=== PATIENT | male | born 1955 | race Caucasian/White ===

== ENCOUNTER → 2020-02-17 13:40 | Outpatient (CLI) | payer MEDICARE, OTHER, SELFPAY ==
--- NOTE | 2020-02-17 | DI.MRI.S_ITS ---
PROCEDURE: MR LUMBAR SPINE WO CON INDICATIONS: Radiculopathy, lumbar region TECHNIQUE: Noncontrast sagittal T1 spin echo and T2 fast echo, sagittal STIR, axial T1 and T2 fast spin echo through the lumbar spine. In cases with scoliosis, additional coronal T2 fast spin echo may be performed. COMPARISON: None. FINDINGS: Image quality: Excellent. Alignment and Curvature: There is 27 degrees dextroscoliotic bony alignment centered at the L2 level of the LS spine.. Bone Marrow: Marrow is of normal overall signal. No acute vertebral body compression fractures. Spinal Cord: Conus medullaris terminates at the L1 level. Visualized cord demonstrates normal signal and size. Paraspinous Soft Tissues: No paravertebral masses. L1-L2: Moderately severe degenerative disc disease, with disc height reduction and a posterior transverse mild disc bulge. Facet osteoarthritis is near severe on the left and moderate in severity on the right. Asymmetric L1 nerve root impingement on the left would be expected.. L2-L3: The degenerative disc disease is moderately severe, facet osteoarthritis is symmetric and moderately severe. There is mild concentric spinal stenosis, and there is moderate bilateral foraminal stenosis to the degree that L2 nerve root impingement would be expected, symmetrically. L3-L4: Moderate degenerative disc disease, posterior transverse disc bulge is moderate. Facet osteoarthritis is greater on the right than the left resulting in asymmetric moderately severe right and moderate left foraminal stenosis with likelihood of asymmetric impingement on the L3 nerve roots. L4-L5: Degenerative disc disease is moderate in severity. There is a small posterior transverse disc bulge. Facet osteoarthritis is greater on the right than the left, moderately severe, with asymmetric right greater than left ligamentum flavum hypertrophy. There is a moderate degree of spinal stenosis and asymmetric right greater than left foraminal stenosis with likelihood of asymmetric L4 nerve root impingement. L5-S1: Moderate degenerative disc disease, small posterior transverse disc bulge. Facet osteoarthritis is greater on the right than the left. Foraminal stenosis appears likely symmetric. IMPRESSION: Multilevel degenerative disc disease and facet osteoarthritis is near severe overall, and further compound it by scoliosis that is 27 degrees convex rightward centered at L2. These factors result in both symmetric and asymmetric spinal and foraminal stenosis and likelihood of multilevel radiculopathy. No disc herniation is found, no prior compression fracture is seen. Less common manifestations of disc degeneration: * dorsal epidural disc herniation. * intradural disc herniation (may have beaklike morphology). * symptomatic thoracic herniation: often, calcified, intradural. * far lateral disc herniation. * discal cyst: may have blood-fluid level. * fibrocartilaginous embolism of disc material to spinal cord. * calcified disc or bony spicule causing spinal CSF leak. Lumbar disc nomenclature v2.0: Recommendations of the combined task forces of the [place] [employer], [place] [employer] of [employer]ine Radiology, and [place] Society of Neuroradiology Annular fissures: seen as high intensity zones on MRI. Concentric, radial, transverse. Degeneration encompasses: desiccation, fibrosis, disc narrowing, diffuse bulge, fissuring, mucinous degeneration of annulus, intradiscal gas, vertebral apophyseal osteophytes, end plate defects, inflammatory changes and sclerosis (Modic types I-III). Disc herniation: localized or focal displacement of disc material less than 25% (90 degrees) of disc periphery on axial images. Diffuse bulging and asymmetric bulging (>25%) are not considered herniation. * Protrusion, extrusion, sequestration. * Disc fragment can migrate (refers only to position, not contiguity). * Intravertebral herniations (aka Schmorl nodes). * Herniations may be contained (if covered by intact outer annulus and/or PLL) vs uncontained. Subligamentous is considered synonymous with contained. A sequestered and/or migrated disc fragment can still be contained. Canal and foraminal stenosis: use 2-D measurements at site of most marked compromise. * Mild: canal compromise of less than 1/3. * Moderate: canal compromise of 1/3 to 2/3. * Severe: canal compromise of greater than 2/3. Location descriptors: * Central, right/left central, right/left subarticular, right/left foraminal, right/left extraforaminal or far lateral. Right/left central should supersede paracentral (a more general term). * In sagittal plane: discal, infrapedicular, suprapedicular, or pedicular. Dictated by: Alex Cao M.D. on 02/17/2020 at 16:41 Approved by: Alex Cao M.D. on 02/17/2020 at 16:50
== END ==
PROVIDERS: Referring Provider Physical Medicine & Rehabilitation Pain Medicine; Visit Provider Physical Medicine & Rehabilitation Pain Medicine
DX: M51.16 Intervertebral disc disorders with radiculopathy, lumbar region (principal); M51.17 Intervertebral disc disorders with radiculopathy, lumbosacral region; M47.26 Other spondylosis with radiculopathy, lumbar region; M47.27 Other spondylosis with radiculopathy, lumbosacral region; M48.061 Spinal stenosis, lumbar region without neurogenic claudication; M48.07 Spinal stenosis, lumbosacral region; M41.9 Scoliosis, unspecified
CPT/HCPCS: 72148

== ENCOUNTER → 2021-01-21 10:59 | Outpatient (CLI) | payer MEDICARE, OTHER, SELFPAY ==
[2021-01-21 13:42] LABS: COVID19 -Nasal RAPID Negative (Negative)
== END ==
PROVIDERS: PCP Physician Assistant; Visit Provider Nurse Practitioner Family
DX: Z20.822 Contact with and (suspected) exposure to COVID-19 (principal); Z01.812 Encounter for preprocedural laboratory examination
CPT/HCPCS: 87635; C9803

== ENCOUNTER 2021-01-22 06:46 | Day surgery (SDC) | payer MEDICARE, OTHER, SELFPAY ==
[2021-01-22] MEDS: PROPARACAINE 0.5% OPHTH SOL 2 DROPS EYE-OP (07:10)
[2021-01-22 07:14] VITALS: BMI 24.7
[2021-01-22] MEDS: CATARACT EYE COMPOUND (10 DROPS/SYRINGE) 3 DROPS EYE-OP (07:17)
[2021-01-22 07:29] VITALS: BP 130/73; PULSE 51; RESP 14; TEMP 36.4; O2SAT 98
--- NOTE | 2021-01-22 08:02 | P.OP_ITS ---
Operative Date/Time/Diagnoses Pre-op diagnosis: Nuclear Cataract Left eye Post-op diagnosis: same Procedure & Clinicians Same procedure as scheduled: Yes Surgeon: Esteban Bradley Anesthesia Type: MAC +/- and Sedation Operative Notes Procedure in detail: Patient brought to the operating suite. Tetracaine drops placed in the left eye. Marking instrument was used to conrad the vertical and horizontal meridians. Patient was prepped and draped in sterile manner. Wire lid speculum was placed in the eye. Marking instrument was used to conrad the 160 degree meridian. Betadine drops were placed on the eye. This was irrigated. Lidocaine jelly was placed on the eye. A paracentesis port was created with a side-port blade. 0.1 mL 1% preservative free lidocaine was injected into the anterior chamber. The anterior chamber was deepened with viscoelastic. 2.6 mm keratome was used to create a temporal clear corneal incision. Cystotome and Utrata forceps were used to create continuous tear capsulorrhexis. Balanced salt solution was used to hydro dissect the nucleus. The phacoemulsification handpiece was inserted and the nucleus was removed using the stop and chop technique. The irrigation aspiration handpiece was inserted and the remaining cortex was removed. Anterior chamber was deepened with viscoelastic. An Allen [id number] intraocular lens with a power of 21.5 was injected into the capsular bag. Irrigation aspiration handpiece was inserted and the remaining viscoelastic was removed. The lens was rotated to the 160 degree meridian. Incision was hydrated with balanced salt solution and found to be leak free with pressure with Weck- Chantel sponges. 0.1 mL Vigamox injected anterior chamber. 0.3 mL Kenalog 10 mg was injected subconjunctivally. Lid speculum was removed. The patient left the operating room in excellent condition. Complications: none Post-operative Condition: stable Disposition: same day surgery
--- NOTE | 2021-01-22 08:02 | PM.PREOP ---
Pre-operative Note Interval Note History & Physical reviewed/Exam performed by Physician: Yes Changes to H&P: No
[2021-01-22] MEDS: MOXIFLOXACIN INJ 4 MG/0.8 ML VIAL 0.5 MG EYE-OP (08:13)
[2021-01-22] MEDS: HYALURONATE SODIUM 30 MG-10 MG/ML SYRINGES 1 BOX INTRAOCULA (08:13)
[2021-01-22] MEDS: PHENYLEPHRINE/LIDOCAINE VIAL (OR) 0.2 ML EYE-OP (08:13)
[2021-01-22] MEDS: TRIAMCINOLONE 50 MG/5 ML VIAL INJ (08:14)
[2021-01-22] MEDS: BALANCED SALT IRRIG SOLN NO.2 500 ML, EPINEPHrine 1 MG IRR (08:14)
[2021-01-22] MEDS: TETRACAINE 0.5% OPHTH DROPS 4 ML 2 DROPS EYE-OP (08:14)
[2021-01-22] MEDS: LIDOCAINE 2% (GLYDO) 6 ML GEL TOP (08:14)
[2021-01-22 08:35] VITALS: BP 105/70; PULSE 47; RESP 16; TEMP 36.4; O2SAT 99
--- NOTE | 2021-01-22 08:54 | SUR.PHASEII ---
Pt ready to go, left in stable condition.
== END 2021-01-22 08:55 | disposition home or self-care (01) ==
PROVIDERS: Referring Provider Ophthalmology; Visit Provider Ophthalmology
PROC: (CPT 66984; principal; 2021-01-22 08:15)
DX: H25.12 Age-related nuclear cataract, left eye (principal)
CPT/HCPCS: 66984; J0171; J2250; J3301; V2787

== ENCOUNTER → 2021-02-04 08:08 | Outpatient (CLI) | payer MEDICARE, OTHER, SELFPAY ==
[2021-02-04 12:00] LABS: COVID19 -Nasal RAPID Negative (Negative)
== END ==
PROVIDERS: Visit Provider Physician Assistant
DX: Z01.812 Encounter for preprocedural laboratory examination (principal); Z20.822 Contact with and (suspected) exposure to COVID-19
CPT/HCPCS: 87635

== ENCOUNTER 2021-02-05 07:50 | Day surgery (SDC) | payer MEDICARE, OTHER, SELFPAY ==
[2021-02-05] MEDS: PROPARACAINE 0.5% OPHTH SOL 2 DROPS EYE-OP (09:05)
[2021-02-05 09:14] VITALS: BP 136/79; PULSE 51; RESP 18; TEMP 36.6; O2SAT 99; BMI 25.0
[2021-02-05] MEDS: CATARACT EYE COMPOUND (10 DROPS/SYRINGE) 3 DROPS EYE-OP (09:22)
--- NOTE | 2021-02-05 09:41 | PM.PREOP ---
Pre-operative Note Interval Note History & Physical reviewed/Exam performed by Physician: Yes Changes to H&P: No
--- NOTE | 2021-02-05 09:41 | PM.OP.1 ---
Operative Date/Time/Diagnoses Pre-op diagnosis: Nuclear cataract right eye Procedure & Clinicians Procedure: Cataract Surgery Same procedure as scheduled: Yes Surgeon: Esteban Bradley Anesthesia Type: MAC +/- and Sedation Operative Notes Procedure in detail: Patient brought to the operating suite. Tetracaine drops placed in the right eye. Marking instrument was used to conrad the vertical and horizontal meridians. Patient was prepped and draped in sterile manner. Wire lid speculum was placed in the eye. Marking instrument was used to conrad the 5 degree meridian. Betadine drops were placed on the eye. This was irrigated. Lidocaine jelly was placed on the eye. A paracentesis port was created with a side-port blade. 0.1 mL 1% preservative free lidocaine was injected into the anterior chamber. The anterior chamber was deepened with viscoelastic. 2.6 mm keratome was used to create a temporal clear corneal incision. Cystotome and Utrata forceps were used to create continuous tear capsulorrhexis. Balanced salt solution was used to hydro dissect the nucleus. The phacoemulsification handpiece was inserted and the nucleus was removed using the stop and chop technique. The irrigation aspiration handpiece was inserted and the remaining cortex was removed. Anterior chamber was deepened with viscoelastic. An Allen [id number] intraocular lens with a power of 20.0 was injected into the capsular bag. Irrigation aspiration handpiece was inserted and the remaining viscoelastic was removed. The lens was rotated to the 5 degree meridian. Incision was hydrated with balanced salt solution and found to be leak free with pressure with Weck-Chantel sponges. 0.1 mL Vigamox injected anterior chamber. 0.3 mL Kenalog 10 mg was injected subconjunctivally. Lid speculum was removed. The patient left the operating room in excellent condition. Complications: none Post-operative Condition: stable Disposition: same day surgery
[2021-02-05] MEDS: HYALURONATE SODIUM 30 MG-10 MG/ML SYRINGES 1 BOX INTRAOCULA (10:03)
[2021-02-05] MEDS: TETRACAINE 0.5% OPHTH DROPS 4 ML 2 DROPS EYE-OP (10:04)
[2021-02-05] MEDS: TRIAMCINOLONE 50 MG/5 ML VIAL INJ (10:04)
[2021-02-05] MEDS: MOXIFLOXACIN INJ 4 MG/0.8 ML VIAL 0.5 MG EYE-OP (10:04)
[2021-02-05] MEDS: BALANCED SALT IRRIG SOLN NO.2 500 ML, EPINEPHrine 1 MG IRR (10:04)
[2021-02-05] MEDS: PHENYLEPHRINE/LIDOCAINE VIAL (OR) 0.2 ML EYE-OP (10:04)
[2021-02-05] MEDS: LIDOCAINE 2% (GLYDO) 6 ML GEL TOP (10:05)
[2021-02-05 10:19] VITALS: BP 117/73; PULSE 47; RESP 16; TEMP 36.4; O2SAT 100
== END 2021-02-05 10:32 | disposition home or self-care (01) ==
PROVIDERS: Referring Provider Ophthalmology; Visit Provider Ophthalmology
PROC: (CPT 66984; principal; 2021-02-05 09:45)
DX: H25.11 Age-related nuclear cataract, right eye (principal)
CPT/HCPCS: 66984; J0171; J2250; J3301; V2787

== ENCOUNTER → 2022-10-20 15:54 | Outpatient (CLI) | payer MEDICARE, OTHER, SELFPAY ==
--- NOTE | 2022-10-20 15:55 | DI.RAD.S_ITS ---
PROCEDURE: XR TIBIA FUBULA RT 2V INDICATIONS: Right leg injury TECHNIQUE: 2 views of the tibia and fibula were acquired. COMPARISON: None. FINDINGS: Bones: No fractures or dislocations. No suspicious bony lesions. Degenerative disc space narrowing and small marginal osteophyte noted at the knee Soft tissues: No suspicious soft tissue calcifications or masses. IMPRESSION: Arthritic changes of the knee. No fracture Approved by: Home Salazar M.D. on 10/20/2022 at 19:29
== END ==
PROVIDERS: PCP Family Medicine; Referring Provider Nurse Practitioner Family; Visit Provider Nurse Practitioner Family
DX: M79.604 Pain in right leg (principal)
CPT/HCPCS: 73590

== ENCOUNTER 2022-10-31 09:18 | Day surgery (SDC) | payer MEDICARE, OTHER, SELFPAY ==
--- NOTE | 2022-10-31 | PATH_ITS ---
[facility] Accession Number: [id number] No. of containers..02 Tissue . 01 Material submitted: . PART A: hepatic flexure - HEPATIC FLEXURE POLYP PART B: rectum - RECTAL POLYPS X 2 . 01 Diagnosis: A. Hepatic Flexure, Polyp: Benign lymphoid aggregate. . B. Rectum, Polyps x2: Hyperplastic polyp. Benign lymphoid aggregate. MRV 11/12/2022 1724 Local . 01 Electronically signed: . Sallie Wolfe MD, Pathologist NPI- [id number] . 01 Gross description: . Part A: HEPATIC FLEXURE POLYP: Received in formalin is 1 fragment(s) of jack, soft tissue measuring 0.3 x 0.2 x 0.2 cm submitted entirely in 1 cassette(s) Part B: RECTAL POLYPS X 2: Received in formalin is 1 fragment(s) of jack, soft tissue measuring 0.5 x 0.3 x 0.2 cm submitted entirely in 1 cassette(s) /GAIL 11/06/2022 1706 Local . 01 Pathologist provided ICD-10: K63.5 . 01 CPT . 235814, 395224 Specimen Comment: A courtesy copy of this report has been sent to [facility] Pathology Performed at: 01 [facility] [address], [place], [place] [id number] MD Taran Prince MD Phone: [phone]
[2022-10-31 09:26] VITALS: BP 135/81; PULSE 60; RESP 17; TEMP 36.1; O2SAT 95; BMI 24.5
[2022-10-31] MEDS: LACTATED RINGERS 1,000 ML 125 ML IV (09:46)
--- NOTE | 2022-10-31 10:31 | PM.HP.1 ---
History of Present Illness History of Present Illness Date Patient Seen: 10/31/22 Time Patient Seen: 10:31 Chief complaint: Screening Colonoscopy Narrative: Mr. Agarwal a 67-year-old male who presents today for screening colonoscopy. He has had 1 colonoscopy in the past but it was about 20 years ago and was done in [facility]. It was not sure if he had polyps or not. He has no family history of colon cancer his brother has had colon cancer screening but he is unaware if that brother had polyps. Dad in the button of cardiac disease not colon cancer. So he has no family history of cancer. There are no concerning symptoms no bleeding from below on occasion he feels constipated and incomplete evacuation of the colon but this is not concerning to him overall. He is a little nervous and tells me that his daughter who is a nurse is getting in one week. He wants to verify that this would not interfere with his ability to be there. [facility] Medical History (Updated 10/31/22 @ 10:33 by Fidelina Norris MD) Chronic back pain Degenerative joint disease (DJD) of lumbar spine Scoliosis Social History household members: spouse Smoking Status: Former smoker alcohol intake: current Meds Home Medications and Allergies Home Medications Medication Instructions Recorded Confirmed Type sodium,potassium,mag sulfates 17.5 See Rx Instructions PO .COMPLEX 08/13/22 10/31/22 Rx gram-3.13 gram-1.6 gram oral soln #354 mL (Suprep Bowel Prep Kit) tamsulosin 0.4 mg capsule See Rx Instructions .Route 09/04/22 10/31/22 Rx .COMPLEX #90 caps Allergies Allergy/AdvReac Type Severity Reaction Status Date / Time No Known Drug Allergies Allergy Verified 10/20/22 15:24 Exam Vital Signs (past 8 hours): - 10/31/22 09:26 Temperature 97 F L Pulse Rate 60 Respiratory Rate 17 Blood Pressure 135/81 Pulse Oximetry 95 Oxygen Delivery Method Room Air Oxygen Delivery Method Room Air Const General: cooperative, healthy appearing and comfortable Nutritional Appearance: average body habitus, well nourished and thin Orientation: alert, awake and oriented x3 HENMT Head: normal to inspection Eyes General: appearance normal, both eyes and all related structures Neck Neck: normal visual inspection Resp Effort & Inspection: normal respiratory effort and able to speak in complete sentences Cardio Pulses: radial pulses present GI Palpation: soft and No tender Assessment & Plan Assessment and plan (1) Colon cancer screening: Status: Acute Assessment & Plan narrative: Presents today for screening colonoscopy I discussed the risks benefits and alternatives including but not limited to perforation of the colon and an incomplete exam he fully understands these risks and would like to proceed. Additionally I discussed that it is very likely an expected that he will be completely back to his baseline by Thursday. And it is unlikely anything would occur that would keep him away there is no 100% guarantee and there is a small risk of complications in the case of a perforation for example that might keep him but the chance of that is very low. 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 He verbalized understanding of this risk and a desire to proceed today with this understanding.
[2022-10-31 11:20] VITALS: BP 86/54; PULSE 57; RESP 16; TEMP 36.4; O2SAT 97
[2022-10-31 11:25] VITALS: BP 88/56; PULSE 54; RESP 12; O2SAT 95
[2022-10-31 11:30] VITALS: BP 95/58; PULSE 63; RESP 12; TEMP 36.3; O2SAT 95
[2022-10-31 11:35] VITALS: BP 93/64; PULSE 63; RESP 12; O2SAT 94
[2022-10-31 11:50] VITALS: BP 101/68; PULSE 53; RESP 16; TEMP 36.6; O2SAT 99
--- NOTE | 2022-10-31 12:56 | PM.OP.COLON ---
Operative Date/Time/Diagnoses Date of procedure: 10/31/22 Time of procedure: 12:56 Pre-op diagnosis: Colon cancer screening no family history of colon cancer Post-op diagnosis: same Procedure & Clinicians Study performed: Colonoscopy and biopsy Same procedure as scheduled: Yes Indications: Colon cancer screening no family history of colon cancer Surgeon: Fidelina Norris Procedure Notes Procedure in detail: Patient was taken to the endoscopy suite and placed in a left lateral decubitus position. A time-out was performed. With the help of anesthesiologist conscious sedation was induced and monitored throughout the case. A digital rectal exam was performed and there were no masses or strictures. The colonoscope was introduced into the anal canal and advanced through to the cecum. Prep was excellent Higginson bowel prep score of 3. A photograph of the appendiceal orifice was obtained. The scope was then withdrawn for a total of 14 minutes and there was a polyp at hepatic flexure that had the appearance really more of lymphoid tissue but was snared and removed. Additionally there were 2 small hyperplastic appearing rectal polyps which were both biopsied and sent together in the same specimen. There were scattered diverticula throughout the colon and more focused in the sigmoid colon but there were some right-sided diverticula and transverse diverticula as well multiple photographs of diverticula were obtained. The scope was then retroflexed and a photograph of the internal hemorrhoidal piles was obtained. There were some prominent internal hemorrhoidal piles. Patient tolerated the procedure well and went in good condition to the postoperative care unit Specimen(s): other (1. Hepatic flexure polyp 2. Rectal polyp x2 small) Complications: none Post-procedure Plan for aftercare: Depending on pathology report if all of the biopsies are benign follow-up would be in 10 years. I do recommend fiber supplementation for anyone with diverticula hemorrhoids or any type of polyps.
== END 2022-10-31 11:55 | disposition home or self-care (01) ==
PROVIDERS: PCP Family Medicine; Referring Provider Surgery; Visit Provider Surgery
PROC: 0DJD8ZZ Inspection of Lower Intestinal Tract, Via Natural or Artificial Opening Endoscopic (ICD-10-PCS; CPT 45378; principal; 2022-10-31 10:15)
DX: Z12.11 Encounter for screening for malignant neoplasm of colon (principal); K57.30 Diverticulosis of large intestine without perforation or abscess without bleeding; K62.1 Rectal polyp
CPT/HCPCS: 45385; 45380; J2250; J2704; J3010

== ENCOUNTER → 2022-12-12 08:52 | Outpatient (CLI) | payer MEDICARE, OTHER, SELFPAY ==
[2022-12-12 10:34] LABS: Add Manual Diff / Slide Review NO; Basophils Absolute Auto 100 /uL (0-100); Basophils Percent Auto 0.9 % (0-2); Eosinophils Absolute Auto 600 /uL (0-450); Eosinophils Percent Auto 8.8 % (2-4); Hematocrit 43.2 % (41-53); Hemoglobin 14.6 g/dL (13.5-17.5); Lymphocytes Absolute Auto 2700 /uL (1100-4500); Lymphocytes Percent Auto 38.1 % (25-40); Mean Corpuscular HGB Conc 33.8 % (30-36); Mean Corpuscular Hemoglobin 31.3 PG (26-34); Mean Corpuscular Volume 92.5 fL (80-100); Monocytes Absolute Auto 1000 /uL (0-900); Monocytes Percent Auto 13.3 % (3-14); Neutrophils Absolute Auto 2800 /uL (1500-7000); Neutrophils Percent Auto 38.9 % (50-75); Platelet Count 246 X10^3/uL (150-400); Red Blood Cell Count 4.67 X10^6/uL (4.5-5.9); Red Cell Distribution Width 12.7 % (11.6-14.8); White Blood Cell Count 7.2 X10^3/uL (4.5-11.0)
[2022-12-12 10:54] LABS: Alanine Aminotransferase 32 IU/L (<50); Albumin 4.1 g/dL (3.5-5.0); Albumin Globulin Ratio 1.6 (1.0-2.8); Alkaline Phosphatase 59 U/L (38-126); Aspartate Aminotransferase 35 IU/L (17-59); BUN Creatinine Ratio 26.4 (6-22); Bilirubin Total 0.9 mg/dL (0.2-1.3); Blood Urea Nitrogen 23 mg/dL (9-20); Calcium 9.7 mg/dL (8.4-10.2); Carbon Dioxide 26 mmol/L (22-32); Chloride 106 mmol/L (98-107); Cholesterol 150 mg/dL (140-199); Estimated Glomerular Filt Rate > 60 mL/min (>60); Globulin 2.5 g/dL (1.7-4.1); Glucose 88 mg/dL (80-110); HDL Cholesterol 48 mg/dL (40-60); HEMOLYSIS < 15 (0-50); LDL Cholesterol Calculated 87 mg/dL (<100); Potassium 4.7 mmol/L (3.4-5.1); Sodium 138 mmol/L (137-145); Total Protein 6.6 g/dL (6.3-8.2); Triglycerides 74 mg/dL (35-150)
[2022-12-12 11:21] LABS: Prostate Specific Antigen Scrn 3.48 ng/mL (0.1-4.0)
== END ==
PROVIDERS: PCP Family Medicine; Referring Provider Family Medicine; Visit Provider Family Medicine
DX: L30.9 Dermatitis, unspecified (principal); M54.50 Low back pain, unspecified; Z12.5 Encounter for screening for malignant neoplasm of prostate; M47.816 Spondylosis without myelopathy or radiculopathy, lumbar region; M41.9 Scoliosis, unspecified; G89.29 Other chronic pain; N40.0 Benign prostatic hyperplasia without lower urinary tract symptoms
CPT/HCPCS: 36415; 80053; 80061; 85025; G0103

== ENCOUNTER → 2022-12-17 10:22 | Outpatient (CLI) | payer MEDICARE, OTHER, SELFPAY ==
--- NOTE | 2022-12-17 10:24 | DI.CT.S_ITS ---
PROCEDURE: CT CHEST WO CON INDICATIONS: pulmonary nodule TECHNIQUE: Noncontrast 5 mm thick sections acquired from the pulmonary apices to the posterior costophrenic angles. 1 mm lung window, 5 mm thick coronal and sagittal and 7 mm axial MIP reformats were then acquired. For radiation dose reduction, the following was used: automated exposure control, adjustment of mA and/or kV according to patient size. COMPARISON: Outside acquired CT thorax without contrast 05/11/2015. Images are available, report is not.. FINDINGS: Image quality: Excellent. Lungs and pleura: Mild emphysematous changes. No pleural effusions or pneumothorax. Central and peripheral airways are patent and normal in caliber. Redemonstration of part cystic and solid nodule in the peripheral left upper lobe measuring 12 mm with solid component measuring 4 mm (/78), previously measuring up to 12 mm with solid component measuring 4 mm (05/11/2015). Additional scattered pulmonary nodules as follows: -left upper lobe 3 mm peripheral nodule (4/70, MIP image 39), new since prior -right upper lobe 3 mm nodule (4/125, MIP image 69), previously 2 mm (5/89 on 05/11/2015) -right upper lobe 2 mm nodule (4/106, MIP image 58), not definitively seen on prior exam which may be due to differences in technique and positioning -left upper lobe 3 mm nodule (4/150, MIP image 79), previously 2 mm (5/103 on 05/11/2015) Mediastinum: Heart size is normal. No pericardial effusion. No mediastinal adenopathy by size criteria. Thoracic aorta and central pulmonary arteries are normal in size. Esophagus is normal in caliber. No hiatal hernia. Bones and chest wall: No acute or suspicious osseous lesion. Mild degenerative changes of the visualized spine. No axillary or supraclavicular adenopathy by size criteria. Thyroid gland unremarkable. Abdomen: Left exophytic simple cyst. Remainder of visualized upper abdominal solid organs and bowel loops appear normal in the absence of contrast. IMPRESSION: Compared to prior outside CT 05/11/2015, stable appearance and size of cystic and solid nodule in the peripheral left upper lobe with solid component measuring 4 mm. Additional scattered 2-3 mm solid pulmonary nodules. Recommend follow-up imaging per Fleischner criteria as below. Mild emphysematous changes. Fleischner Society criteria for SOLID lung nodule followup. Nodule size (mm)Low-risk patientHigh-risk patient<6 (single or multiple)No routine followup.Optional CT at 12 months. 6-8 (single or multiple)CT at 6-12 months, then optional CT at 18-24 mo.CT at 6-12 months, then CT at 18-24 months. >8 (single)CT at 3 months, PET-CT, or biopsy. Same as for low-risk pts. >8 (multiple)CT at 3-6 months, then optional CT at 18-24 mo.CT at 3-6 months, then CT at 18-24 months. Fleischner Society criteria for SUB-SOLID lung nodule followup. Solitary pure ground-glass nodules<6 mm (ground glass or part solid)No followup needed. 6 mm or larger (ground glass)CT at 6-12 months to confirm persistence, then CT every 2 years until 5 years.6 mm or larger (part solid)CT at 3-6 months to confirm persistence, then annual CT until 5 years if unchanged and solid component remains <6 mm. Multiple sub-solid nodules<6 mmCT at 3-6 months, then CT consider at 2 & 4 years for high risk patients. [address] at 3-6 months. Subsequent management based on most suspicious lesions. Recommendations do not apply to lung cancer screening, patients with immunosuppression, or patients with known primary cancer. Approved by: Rosie Badillo M.D. on 12/19/2022 at 13:08
== END ==
PROVIDERS: PCP Family Medicine; Referring Provider Family Medicine; Visit Provider Family Medicine
DX: R91.8 Other nonspecific abnormal finding of lung field (principal)
CPT/HCPCS: 71250

== ENCOUNTER → 2023-09-10 08:14 | Outpatient (CLI) | payer MEDICARE, OTHER, SELFPAY ==
--- NOTE | 2023-09-10 08:16 | DI.MRI.S_ITS ---
PROCEDURE: MR ANKLE RT WO CON INDICATIONS: Pain in right ankle and joints of right foot TECHNIQUE: Noncontrast sagittal T1 spin echo and T2 fast spin echo with fat saturation, axial proton density fast spin echo and T2 fast spin echo with fat saturation, coronal T1 spin echo and T2 fast spin echo with fat saturation through the ankle/hindfoot. COMPARISON: [facility] [place], CR, XR ANKLE 3 VIEWS WEIGHT BEARING RIGHT, 09/01/2023, 8:42. FINDINGS: Image quality: Excellent. Bones and joints: No acute trabecular bone injury or fracture. No hindfoot coalitions. No osteochondral injuries of the talar dome. Moderate degenerative changes at the dorsal aspect of the talonavicular joint with subchondral edema and marginal osteophytes. Mild naviculocuneiform and 2nd tarsometatarsal degenerative changes. Medial structures: The deltoid ligament and the spring ligament complex are intact. Mild posterior tibialis tenosynovitis. The flexor digitorum longus and flexor hallucis longus tendons are intact. The posterior tibial neurovascular bundle appears normal within the tarsal tunnel, without extrinsic mass effect. Lateral structures: Thickening of the anterior talofibular ligament is compatible with remote prior grade 2 sprain. Prior grade 1-2 sprains of the posterior talofibular ligament and calcaneofibular ligament. The anterior and posterior tibiofibular ligaments are intact. Mild peroneus brevis and longus tendinosis and tenosynovitis. Small ganglion cyst is seen extending superiorly from the lateral sinus tarsi a measuring up to 19 mm in greatest dimension. Anterior structures: The tibialis anterior, extensor hallucis longus, and extensor digitorum longus tendons appear intact. Posterior and plantar structures: Mild Achilles tendinosis. The proximal plantar fascia is intact. No abductor digiti minimi muscle atrophy to suggest Hudson neuropathy. IMPRESSION: 1. Remote prior grade 2 sprain of the anterior talofibular ligament and grade 1-2 sprains of the calcaneofibular and posterior talofibular ligaments. 2. Mild peroneus brevis and longus tendinosis and tenosynovitis. 3. Mild distal posterior tibialis tenosynovitis. 4. Moderate talonavicular osteoarthrosis. Mild degenerative changes at the naviculocuneiform and 2nd tarsometatarsal articulations. 5. Mild Achilles tendinosis. 6. Small ganglion cyst extends superiorly from the lateral sinus tarsi. Approved by: Sarwat Martínez M.D. on 09/10/2023 at 13:32
== END ==
PROVIDERS: PCP Family Medicine; Referring Provider Orthopaedic Surgery Foot and Ankle Surgery; Visit Provider Orthopaedic Surgery Foot and Ankle Surgery
DX: S93.491A Sprain of other ligament of right ankle, initial encounter (principal); S93.411A Sprain of calcaneofibular ligament of right ankle, initial encounter; M65.871 Other synovitis and tenosynovitis, right ankle and foot; M19.071 Primary osteoarthritis, right ankle and foot; M67.471 Ganglion, right ankle and foot; M25.571 Pain in right ankle and joints of right foot
CPT/HCPCS: 73721

== ENCOUNTER → 2024-06-15 08:16 | Outpatient (CLI) | payer MEDICARE, OTHER, SELFPAY ==
[2024-06-15 09:03] LABS: Add Manual Diff / Slide Review NO; Basophils Absolute Auto 100 /uL (0-100); Basophils Percent Auto 0.7 % (0-2); Eosinophils Absolute Auto 500 /uL (0-450); Eosinophils Percent Auto 6.4 % (2-4); Hematocrit 44.8 % (41-53); Hemoglobin 15.3 g/dL (13.5-17.5); Lymphocytes Absolute Auto 3800 /uL (1100-4500); Lymphocytes Percent Auto 44.7 % (25-40); Mean Corpuscular HGB Conc 34.2 % (30-36); Mean Corpuscular Hemoglobin 31.6 PG (26-34); Mean Corpuscular Volume 92.3 fL (80-100); Monocytes Absolute Auto 1000 /uL (0-900); Monocytes Percent Auto 11.5 % (3-14); Neutrophils Absolute Auto 3100 /uL (1500-7000); Neutrophils Percent Auto 36.7 % (50-75); Platelet Count 237 X10^3/uL (150-400); Red Blood Cell Count 4.85 X10^6/uL (4.5-5.9); Red Cell Distribution Width 13.8 % (11.6-14.8); White Blood Cell Count 8.5 X10^3/uL (4.5-11.0)
[2024-06-15 09:38] LABS: Alanine Aminotransferase 27 IU/L (<50); Albumin 4.2 g/dL (3.5-5.0); Albumin Globulin Ratio 1.8 (1.0-2.8); Alkaline Phosphatase 72 U/L (38-126); Aspartate Aminotransferase 36 IU/L (17-59); BUN Creatinine Ratio 32.6 (6-22); Bilirubin Total 0.9 mg/dL (0.2-1.3); Blood Urea Nitrogen 30 mg/dL (9-20); Calcium 9.6 mg/dL (8.4-10.2); Carbon Dioxide 21 mmol/L (22-32); Chloride 110 mmol/L (98-107); Cholesterol 155 mg/dL (140-199); Estimated Glomerular Filt Rate > 60 mL/min (>60); Globulin 2.4 g/dL (1.7-4.1); Glucose 106 mg/dL (80-110); HDL Cholesterol 47 mg/dL (40-60); HEMOLYSIS < 15 (0-50); LDL Cholesterol Calculated 83 mg/dL (<100); Potassium 4.4 mmol/L (3.4-5.1); Sodium 139 mmol/L (137-145); Total Protein 6.6 g/dL (6.3-8.2); Triglycerides 126 mg/dL (35-150)
[2024-06-15 10:06] LABS: TSH w/ Reflex to FT4 0.82 uIU/mL (0.47-4.68)
[2024-06-15 10:07] LABS: Prostate Specific Antigen Scrn 4.06 ng/mL (0.1-4.0)
[2024-06-15 10:26] LABS: Hep C Virus Ab w/Reflex Quant NEGATIVE s/c (NEGATIVE)
[2024-06-15 10:43] LABS: Microalbumin Urine Random 1.2 mg/dL (0-1.6)
[2024-06-16 03:39] LABS: Apolipoprotein B 68 mg/dL (<90)
== END ==
PROVIDERS: PCP Family Medicine; Referring Provider Family Medicine; Visit Provider Family Medicine
DX: Z00.00 Encounter for general adult medical examination without abnormal findings (principal); R91.1 Solitary pulmonary nodule; Z12.5 Encounter for screening for malignant neoplasm of prostate
CPT/HCPCS: 36415; 80053; 80061; 82043; 82172; 82570; 84443; 85025; 86803; G0103

== ENCOUNTER → 2024-06-15 12:16 | Outpatient (CLI) | payer MEDICARE, OTHER, SELFPAY ==
--- NOTE | 2024-06-15 12:17 | DI.CT.S_ITS ---
PROCEDURE: CT CHEST WO CON INDICATIONS: pulmonary nodule follow up TECHNIQUE: Noncontrast 5 mm thick sections acquired from the pulmonary apices to the posterior costophrenic angles. 1 mm lung window, 5 mm thick coronal and sagittal and 7 mm axial MIP reformats were then acquired. For radiation dose reduction, the following was used: automated exposure control, adjustment of mA and/or kV according to patient size. COMPARISON: [facility], CT, CT CHEST WO CON, 12/17/2022, 10:26., outside CT chest 05/11/2015 FINDINGS: Image quality: Diagnostic. Lower Neck: No enlarged lymph nodes. Thyroid: No thyroid nodules which require sonographic follow up, per consensus guidelines. Axillae: No enlarged lymph nodes. Chest Wall: Unremarkable. Bones: Unremarkable. Lungs and Pleura: No pneumothorax or pleural effusions. Central airways are patent and normal in caliber. Mild emphysematous changes. There is again seen part cystic and solid nodule in peripheral left upper lobe measuring 12 mm with solid component measuring 4 mm (69), stable since 05/11/2015 suggestive of benign etiology. No new or enlarging pulmonary nodules. Previously described right and left upper lobe nodules have resolved and are decreased in size since prior CT 12/17/2022. Heart: Heart size is normal. No pericardial effusion. Thoracic Vessels: The aorta and pulmonary arteries demonstrate normal size. Mediastinum and Kaia: No enlarged lymph nodes. Esophagus: No wall thickening. No hiatal hernia. Upper Abdomen: Visualized upper abdomen solid organs and bowel loops appear normal. IMPRESSION: Compared to prior CT 12/17/2022, stable appearance of cystic and solid nodule in the peripheral left upper lobe with solid component measuring 4 mm since 2016 consistent with benign etiology. Previously described sub 6 mm solid nodules have resolved/decreased in size. No new or enlarging pulmonary nodules. Approved by: Rosie Badillo M.D.,Ph.D. on 06/16/2024 at 5:54
== END ==
PROVIDERS: PCP Family Medicine; Referring Provider Family Medicine; Visit Provider Family Medicine
DX: Z00.00 Encounter for general adult medical examination without abnormal findings (principal); R91.1 Solitary pulmonary nodule; N40.0 Benign prostatic hyperplasia without lower urinary tract symptoms; Z12.11 Encounter for screening for malignant neoplasm of colon
CPT/HCPCS: 36415; 71250; 80053; 80061; 82043; 82172; 82570; 84443; 85025; 86803; G0103

== ENCOUNTER → 2024-10-24 14:51 | Outpatient (CLI) | payer MEDICARE, OTHER, SELFPAY | PROVIDERS: PCP Family Medicine; Visit Provider Urology | DX: R97.20 Elevated prostate specific antigen [PSA] (principal); N40.1 Benign prostatic hyperplasia with lower urinary tract symptoms | CPT/HCPCS: 87086 ==

== ENCOUNTER 2024-10-25 08:14 | Day surgery (SDC) | payer MEDICARE, OTHER, SELFPAY ==
[2024-10-19 13:14] VITALS: BMI 25.2
[2024-10-25] VITALS (8 sets, daily range): BP systolic 93–121; BP diastolic 51–69; PULSE 52–60; RESP 12–17; TEMP 35.9–36.4; O2SAT 96–98; BMI 25.0
--- NOTE | 2024-10-25 | PATH_ITS ---
[facility] Accession Number: [id number] No. of containers..01 Tissue . 01 Material submitted: . prostate - PROSTATE CHIPS . 01 Diagnosis: PROSTATE, TURP: Benign prostatic parenchyma with features consistent with benign prostatic hyperplasia. No evidence of malignancy. MRV 10/31/20241837 Local . 01 Electronically signed: . Lopez Salazar MD, PhD, Pathologist NPI- [id number] . 01 Gross description: . Received in formalin with two identifiers and prostate chips, are multiple jack rubbery tissue fragments admixed with a moderate amount of hemorrhagic material weighing 85 gram and aggregating to 9.4 x 8.5 x 1.9 cm. Over 50% of the tissue is submitted in A1-A10. ([id number]) /MRV 10/27/20242027 Local . 01 Pathologist provided ICD-10: N40.1 . 01 CPT . 313348 Specimen Comment: A courtesy copy of this report has been sent to [facility] Performed at: [address] [address], [place], [place] [id number] MD Taran Prince MD Phone: [phone]
[2024-10-25] MEDS: ACETAMINOPHEN 325 MG TABLET 975 MG PO (08:27)
[2024-10-25] MEDS: LACTATED RINGERS 1,000 ML 42 ML IV ×2 (08:28→13:40)
--- NOTE | 2024-10-25 09:32 | PM.PREOP ---
Pre-operative Note COVID-19 COVID-19 status: Not tested Interval Note History & Physical reviewed/Exam performed by Physician: Yes Changes to H&P: No
[2024-10-25] MEDS: levoFLOXacin 500 MG/100 ML PIGGYBACK 100 MG IV (09:55)
--- NOTE | 2024-10-25 10:12 | SUR.OPER ---
Lithotomy on padded OR bed, head on pillow, arms secured on padded arm boards at <90 degrees abduction. Legs secured in padded yellow fins stirrups. Dr. Sanchez in room to adjust patient positioning, all pressure points padded and covered.
[2024-10-25] MEDS: LACTATED RINGERS 1,000 ML 21 ML IV (11:07)
--- NOTE | 2024-10-25 12:21 | P.OP_ITS ---
Operative Date/Time/Diagnoses Date of procedure: 10/25/24 Time of procedure: 10:00 Pre-op diagnosis: Benign prostatic hyperplasia with lower urinary tract symptoms Post-op diagnosis: same Procedure & Clinicians Procedure: Cystoscopy Aquablation Same procedure(s) as scheduled: Yes Indications: 69 y/o M noted to have symptoms consistent w/ BPH and LUTS that are currently managed w/ Tamsulosin 0.4mg daily. Discussed treatment options to include observation vs increasing the dosage of his Tamsulosin to 0.8mg daily. Discussed mechanism of action and expected side effects to include orthostatic hypotension, nasal congestion and retrograde ejaculation. Also discussed the possible addition of Finasteride 5mg daily (discussed possible side effects to include decreased libido, worsening erectile dysfunction, loss of ejaculate volume as well as painful breast development or nipple tenderness), or a lower urinary tract evaluation prior to a bladder outlet procedure. Discussed that his cystoscopy and TRUS prostate were notable for coaptating lateral prostatic lobes w/ a large intravesical median lobe and a TRUS volume of 135 cc. Disc ussed that he otherwise would be a candidate for Aquablation. Discussed risks of the procedure to include but not limited to pain, bleeding, infection, injury to urethra/bladder/either ureteral orifice, clot retention, irritative voiding symptoms for several months following the procedure, urinary incontinence, erectile dysfunction, retrograde ejaculation, need for open emergent repair of any bladder or ureteral injuries, urethral stricture or bladder neck contracture development, need for repeat procedures. Surgeon: Iban Sanchez Click Yes if Unassisted: Yes Anesthesia Type: General Operative Notes Findings: Coaptating lateral prostatic lobes, large intravesical median lobe Closure Type: not applicable Specimen(s): other (prostate chips) Applied: catheter Estimated Blood Loss (mL): 50 Blood products transfused: none Procedure in detail: After informed consent was obtained, the patient was identified brought to the operating room where he was placed in his supine position on the table.? Once there anesthesia was induced and maintained.? Ensuring an adequate level of an esthesia the patient was transitioned to the lithotomy position where after time-out he was prepped.? After prepping, ensuring an adequate level of anesthesia, administration IV antibiotics and time-out 60 cc of ultrasound gel was instilled within the rectum and the ultrasound probe which had been attached to the TRUS stepper which was attached to the TRUS stepper articulating arm which was secured to the bed was advanced into the rectum under direct vision via the ultrasound.? The ultrasound probe was then aligned and confirmation made that the prostate was centered and aligned in both the sagittal and transverse views.? The bladder neck, verumontanum, central and transitional zones were identified.? With the ultrasound in place and adjusted the patient was then draped in a sterile fashion. With the patient draped the 24 Belgian aqua beam handpiece was then inserted through the urethra and advanced into the bladder.? Cystoscopy was then performed and no concerning bladder mass or lesions were noted.? Bilateral ureteral orifices were noted to be orthotopic in nature.? As the cystoscope was advanced the level of the sphincter, verumontanum, bladder neck were all identified via ultrasound and under direct vision.? The aqua beam hand place was then secured to the handpiece articulating arm which had been secured to the bed.? The Aquablation handpiece and TRUS probe were confirmed to be parallel and colinear.? Confirmation was then made that the aqua beam handpiece and nozzle was centered and anterior to the bladder neck.? The cystoscope was then retracted under direct vision in the sphincter and verumontanum were identified.? The tip of the cystoscope was then placed proximal to the external sphincter.? Compression was applied with the TRUS probe to the prostate.? The alignment of the TRUS probe and aqua beam handpiece was once again confirmed.? Horizontal alignment of the handpiece water jet was then performed.? With these adjustments made, the treatment zones were then planned using real-time ultrasound.? In the largest transverse view of the prostate the depth and radial angles were determined and set again in the transverse view of the prostate.? In the longitudinal and sagittal view the Aquablation nozzle was identified and its position registered with the software and robot.? The treatment contours were then determined and adjusted to reflect the intended margins of resection.? Following our plan confirmation, the Aquablation resection treatment was started.? A 2nd pass was then completed in similar fashion after the 1st pass had been completed.? At this point, the Aqua hand piece was removed from the urethra. The 26Fr resectoscope was then inserted into the urethra and cystoscopy was repeated.? The Elik imaging engineer was utilized to evacuate the blood clots from the bladder.? The bladder neck was then resected using the bipolar Gyrus loop.? Bilateral ureteral orifices were again identified and noted to be intact at case end.? Hemostasis was obtained and noted to be excellent at case end.? The resectoscope was then removed and a 24Fr Jerry 3-way hematuria catheter was inserted through the urethra and into the bladder.? 45cc of sterile water was utilized for balloon insufflation.? Efflux was noted to be clear at case end.? Anesthesia was reversed, he was extubated in the OR and transferred to the PACU in stable condition for recovery. Complications: none Post-operative Condition: stable Disposition: PACU Plan for aftercare: Will continue to run CBI for a few hours to evaluate the efflux from his catheter.? Should it remain relatively clear and with minimal blood clots, will discharge home with catheter in place and have him return to Urology clinic in 2 days for a voiding trial.? Should his efflux remain red or have significant clot burden, will admit overnight for observation and continued CBI.
[2024-10-25] MEDS: PHENAZOPYRIDINE 100 MG TABLET 200 MG PO (13:55)
[2024-10-25] MEDS: OXYBUTYNIN 5 MG TABLET PO (13:55)
== END 2024-10-25 16:39 | disposition home or self-care (01) ==
PROVIDERS: PCP Family Medicine; Referring Provider Family Medicine; Visit Provider Urology
PROC: 0VT08ZZ Resection of Prostate, Via Natural or Artificial Opening Endoscopic (ICD-10-PCS; CPT 0421T; principal; 2024-10-25 09:45)
DX: N40.1 Benign prostatic hyperplasia with lower urinary tract symptoms (principal); R39.12 Poor urinary stream; R33.9 Retention of urine, unspecified; R35.1 Nocturia; R97.20 Elevated prostate specific antigen [PSA]
CPT/HCPCS: 0421T; C2596; J0330; J1100; J1956; J2405; J2704; J3010; J3490

== ENCOUNTER → 2024-10-27 14:17 | Outpatient (CLI) | payer MEDICARE, OTHER, SELFPAY | LOC: LAB 14:17 | PROVIDERS: PCP Family Medicine; Visit Provider Urology | DX: R97.20 Elevated prostate specific antigen [PSA] (principal); N40.1 Benign prostatic hyperplasia with lower urinary tract symptoms | CPT/HCPCS: 87086 ==

== ENCOUNTER → 2024-12-06 15:02 | Outpatient (CLI) | payer MEDICARE, OTHER, SELFPAY ==
[2024-12-06 17:53] LABS: Appearance Urine UA CLOUDY; Bilirubin Urine UA NEGATIVE (NEGATIVE); Glucose Urine UA NEGATIVE (Negative); Ketones Urine UA NEGATIVE (NEGATIVE); Leukocyte Esterase Urine UA 1+ (NEGATIVE); Nitrite Urine UA NEGATIVE (Negative); Occult Blood Urine UA 3+ (Negative); Protein Urine UA 3+ (Negative); Specific Gravity Urine UA 1.025 (1.000-1.035); Urobilinogen Urine UA 1.0 E.U./dL (0.2); pH Urine UA 5.5 (4.5-8.0)
[2024-12-06 18:11] LABS: Color Urine UA Red
[2024-12-06 18:12] LABS: Culture Indicated Urine Specimen Cultured
== END ==
PROVIDERS: Urology; PCP Family Medicine; Referring Provider Family Medicine; Visit Provider Family Medicine
DX: R39.9 Unspecified symptoms and signs involving the genitourinary system (principal)
CPT/HCPCS: 81001; 87086